=== PATIENT | male | born 1985 | race American Indian/Alaskan Native ===

== ENCOUNTER 2017-01-08 08:11 | Emergency (ER) | payer SELFPAY ==
[2017-01-08 08:27] VITALS: BP 108/65
--- NOTE | 2017-01-08 08:44 | Emergency Department Report ---
ED Rash HPI - HPI Chief Complaint: Allergic Reaction Stated Complaint: ITCHING Time Seen by Provider: 01/08/17 08:31 Duration: Today Location: Neck, Chest, Back, Abdomen, Upper Extremities Suspected Cause: Insect Rash Symptoms: Yes Itching, No Facial Swelling, No Tongue/Oral Swelling, No Breathing Difficulties, No Choking Sensation, No Wheezing/Dyspnea, No Peeling, No Blistering, No Fever, No Lightheaded, No Malaise, No Myalgias Severity: severe Other History: Patient comes in the ER today with complaints of itching. The patient believes that he has been bit by some sort of insect. Patient has been trying some [id number] calamine lotion as well as cortisone cream. Patient states that the [id number] medications helps for about 10 minutes for the itching. Patient denies any change in environment such as stays in hotels or other beds. ED Review of Systems ROS: Stated complaint: ITCHING Other details as noted in HPI Constitutional: denies: chills, fever Eyes: denies: eye pain, eye discharge, vision change ENT: denies: ear pain, throat pain Respiratory: denies: cough, shortness of breath, wheezing Cardiovascular: denies: chest pain, palpitations Endocrine: no symptoms reported Gastrointestinal: denies: abdominal pain, nausea, diarrhea Genitourinary: denies: urgency, dysuria Musculoskeletal: denies: back pain, joint swelling, arthralgia Skin: rash, pruritus. denies: lesions Neurological: denies: headache, weakness, paresthesias Psychiatric: denies: anxiety, depression Hematological/Lymphatic: denies: easy bleeding, easy bruising ED Past Medical Hx - Past Medical History Previous Medical History?: Yes Hx Hypertension: Yes (no meds) Hx Seizures: Yes ( CHILD) - Surgical History Past Surgical History?: No - Social History Smoking Status: Former Smoker - Medications Home Medications: Home Medications Medication Instructions Recorded Confirmed Last Taken Type Methocarbamol [Robaxin TAB] 750 mg PO Q8H PRN #20 tablet 10/22/15 Unknown Rx Permethrin [Elimite] 60 gm TP ONCE #60 cream..g. 01/08/17 Unknown Rx hydrOXYzine PAMOATE [Vistaril] 25 mg PO Q6HR PRN #20 capsule 01/08/17 Unknown Rx Rash Exam - Exam General: Vital signs noted. No distress. Alert and acting appropriately. HEENT: No Periorbital Edema, No Conjuctival Injection, No Chemosis, No Perioral Edema, No Tongue Edema, No Uvular Edema, No Compromised Airway, No Drooling Lungs: Yes Good Air Exchange (Normal Breath Sounds), No Wheezes, No Ronchi, No Stridor, No Cough, No Labored Respirations, No Retractions, No Use of Accessory Muscles, No Other Abnormal Lung Sounds Heart: Yes Regular, No Murmur Skin: Yes Erythema (multiple round erythematous, nontender lesions noted to bilateral upper extremities, anterior and posterior torso, neck consistent with insect bites), No Urticarial Rash, No Maculopapular Rash, No Bulla(e), No Excoriations, No Weeping, No Tenderness, No Edema Other: Positive: Abdomen Normal, Neurologic Normal, Musculoskeletal Normal ED Course Vital Signs 01/08/17 08:17 Temperature 97.7 F Pulse Rate 62 Respiratory 20 Rate Blood Pressure 108/65 O2 Sat by Pulse 99 Oximetry ED Medical Decision Making - Medical Decision Making Patient is nontoxic and hemodynamically stable. Examination is consistent with some sort of mite infestation. Patient will be given prescription for Elimite cream as well as Vistaril for the itching. I've instructed patient on proper use of Elimite cream. Patient is in agreement with treatment plan and patient is stable for discharge. Critical care attestation.: If time is entered above; I have spent that time in minutes in the direct care of this critically ill patient, excluding procedure time. ED Disposition Clinical Impression: Mite infestation Disposition: DISCHARGED TO HOME OR SELFCARE Is pt being admited?: No Does the pt Need Aspirin: No Condition: Good Instructions: Scabies (ED) Prescriptions: hydrOXYzine PAMOATE [Vistaril] 25 mg PO Q6HR PRN #20 capsule PRN Reason: Itching Permethrin [Elimite] 60 gm TP ONCE #60 cream..g. Referrals: PRIMARY CARE, [Primary Care Provider] - 3-5 Days Time of Disposition: 08:44
== END 2017-01-08 08:58 | disposition home or self-care (01) ==
LOC: ED 08:11
DX: B88.9 Infestation, unspecified (principal); I10 Essential (primary) hypertension; R56.9 Unspecified convulsions; Z87.891 Personal history of nicotine dependence
CPT/HCPCS: 99282

== ENCOUNTER 2017-02-09 23:16 | Emergency (ER) | payer SELFPAY ==
[2017-02-09 23:44] VITALS: BP 119/78
--- NOTE | 2017-02-10 00:49 | Cat Scan Report ---
FINAL REPORT EXAM: CT HEAD/BRAIN WO CON HISTORY: head injury TECHNIQUE: CT imaging acquired through the head without intravenous contrast. Transaxial reformations are provided. PRIORS: None. FINDINGS: The ventricles, cisterns and sulci are normal. No intraparenchymal or extra-axial mass, hemorrhage, or mass effect. Ballesteros and white-matter differentiation is normal. Normal spherical shape of the globes. Partially imaged paranasal sinuses and mastoid air cells are without significant abnormality. No skull or facial fracture visualized. IMPRESSION: No acute intracranial abnormality.
[2017-02-10] MEDS ORDERED: FIORICET PO ONE (01:06)
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
[2017-02-10 02:23] LABS: Basophils % (Auto) 0.9 % (0.0-1.8); Eosinophils % (Auto) 2.1 % (0.0-4.3); Hematocrit 43.1 % (35.5-45.6); Hemoglobin 14.1 gm/dl (11.8-15.2); Mean Corpuscular HGB Conc 33 % (32-34); Mean Corpuscular Hemoglobin 29 pg (28-32); Mean Corpuscular Volume 89 fl (84-94); Platelet Count 191 K/mm3 (140-440); Red Blood Count 4.84 M/mm3 (3.65-5.03); Red Cell Distribution Width 13.3 % (13.2-15.2); White Blood Count 8.6 K/mm3 (4.5-11.0)
[2017-02-10 02:41] LABS: Creatine Kinase MB 2.7 ng/mL (0.0-4.0)
[2017-02-10 02:44] LABS: Anion Gap 18 mmol/L; Blood Urea Nitrogen 11 mg/dL (9-20); Calcium 9.7 mg/dL (8.4-10.2); Carbon Dioxide 26 mmol/L (22-30); Chloride 98.6 mmol/L (98-107); Creatine Kinase 300 units/L (55-170); Glucose 82 mg/dL (75-100); Potassium 3.8 mmol/L (3.6-5.0); Sodium 139 mmol/L (137-145)
== END 2017-02-10 03:15 | disposition left against medical advice (07) ==
LOC: ED 23:16
DX: R55 Syncope and collapse (principal); I10 Essential (primary) hypertension
CPT/HCPCS: 36415; 70450; 80048; 82550; 82553; 84484; 85025; 85379; 93005; 93010

== ENCOUNTER 2017-02-25 20:56 | Emergency (ER) | payer SELFPAY ==
[2017-02-25] MEDS ORDERED: TYLENOL PO ONE (21:21)
[2017-02-25 21:58] LABS: Alanine Aminotransferase 12 units/L (7-56); Albumin 4.4 g/dL (3.9-5); Albumin/Globulin Ratio 1.7 %; Alkaline Phosphatase 65 units/L (35-129); Anion Gap 15 mmol/L; BUN/Creatinine Ratio 8.75; Blood Urea Nitrogen 7 mg/dL (9-20); Calcium 9.3 mg/dL (8.4-10.2); Carbon Dioxide 26 mmol/L (22-30); Chloride 98.3 mmol/L (98-107); Glucose 127 mg/dL (75-100); Potassium 3.7 mmol/L (3.6-5.0); Sodium 136 mmol/L (137-145)
[2017-02-25] MEDS ORDERED: NACL 0.9% 1000 ML 1,000 ML IV ONE (22:10)
--- NOTE | 2017-02-25 23:05 | Cat Scan Report ---
FINAL REPORT PROCEDURE: CT HEAD/BRAIN WO CON TECHNIQUE: Computerized tomography of the head was performed without contrast material. HISTORY: SYNCOPE COMPARISON: Head CT dated February 10, 2017 FINDINGS: Mild mucosal thickening is seen in the paranasal sinuses. Mastoid air cells appear clear. No calvarial fracture is seen. Cerebral ventricles are normal in size. No acute intracranial hemorrhage or mass effect is seen. No CVA is seen. Idiopathic calcification is seen in the right basal ganglia. IMPRESSION: No significant intracranial abnormality is seen. Mild changes of chronic sinusitis are seen.
[2017-02-25 23:46] LABS: Urine Drugs of Abuse Note Disclamer
[2017-02-26 00:08] LABS: Bilirubin,Urine NEG (Negative); Blood,Urine NEG (Negative); Ketones,Urine NEG (Negative); Leukocyte Esterase,Urine NEG (Negative); Nitrite,Urine NEG (Negative); Protein,Urine <15 mg/dL mg/dL (Negative); Urobilinogen,Urine < 2.0 mg/dL (<2.0)
[2017-02-26 00:20] VITALS: BP 116/58
[2017-02-26 00:46] LABS: Basophils % (Auto) 1.1 % (0.0-1.8); Hematocrit 36.4 % (35.5-45.6); Hemoglobin 12.4 gm/dl (11.8-15.2); Mean Corpuscular HGB Conc 34 % (32-34); Mean Corpuscular Hemoglobin 31 pg (28-32); Mean Corpuscular Volume 90 fl (84-94); Platelet Count 176 K/mm3 (140-440); Red Blood Count 4.03 M/mm3 (3.65-5.03); Red Cell Distribution Width 13.2 % (13.2-15.2); White Blood Count 6.6 K/mm3 (4.5-11.0)
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
== END 2017-02-26 01:10 | disposition home or self-care (01) ==
LOC: ED 20:56
DX: R55 Syncope and collapse (principal); I10 Essential (primary) hypertension; Z87.891 Personal history of nicotine dependence
CPT/HCPCS: 36415; 70450; 80053; 80307; 81001; 85025; 93005; 93010; 96360; 99284

== ENCOUNTER 2018-12-31 20:08 | Emergency (ER) | payer SELFPAY ==
[2018-12-31 20:16] VITALS: BP 118/64
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
== END 2018-12-31 21:55 | disposition left against medical advice (07) ==
LOC: ED 20:08
DX: M54.89 Other dorsalgia (principal); Z53.21 Procedure and treatment not carried out due to patient leaving prior to being seen by health care provider